=== PATIENT | female | born 1975 | race Caucasian/White ===

== ENCOUNTER → 2019-04-26 | Outpatient (CLI) | payer MEDICAID ==
[2019-01-18 13:53] VITALS: BP 115/76
[~2019-04-26] MED LIST: CALC200T3 PO; CIPR500T94 PO; DOCU-109 PO; HYDR-2679 PO; OXYC-316 PO; PNV1TABL25 PO; ZOLP5TAB PO
--- NOTE | 2019-04-26 16:22 | KCIC ---
EXAM: Lumbar spine, 5 views. HISTORY: Pain. COMPARISON: None. FINDINGS: 5 views lumbar spine are obtained. There is grade 2-3 anterolisthesis of L5 on S1 with associated pars defects, severe degenerative endplate remodeling, complete loss of the advanced facet arthropathy. The vertebral bodies are normal in height. There is minimal S-shaped thoracolumbar curvature. There are cholecystectomy clips. IMPRESSION: 1. Grade 2-3 anterolisthesis of L5 on S1 with pars defects and severe degenerative change. 2. No acute osseous finding. Electronically signed by: Socorro Laird MD (04/26/2019 4:20 PM) [id number]
== END | disposition home or self-care (01) ==
LOC: KCIC 14:34
PROVIDERS: ATTEND Family Medicine
DX: M43.17 Spondylolisthesis, lumbosacral region (principal); M12.88 Other specific arthropathies, not elsewhere classified, other specified site; G89.29 Other chronic pain
CPT/HCPCS: 72110